=== PATIENT | female | born 1975 | race Caucasian/White ===

== ENCOUNTER 2024-06-26 09:02 | Emergency (ER) | payer SELFPAY ==
[~2024-06-26] VITALS: Ht 157.5 cm; Wt 66.9 kg
[2024-06-26 10:26] VITALS: BP 112/71; TEMP 99.7; O2SAT 98
[2024-06-26] MEDS ORDERED: MUCI600T31 PO (10:55)
[2024-06-26] MEDS ORDERED: DOXY-441 PO (10:55)
[2024-06-26] MEDS ORDERED: OXYM15SP2 (10:55)
== END 2024-06-26 11:00 | disposition home or self-care (01) ==
LOC: M ED 09:02
DX: J01.00 Acute maxillary sinusitis, unspecified (principal); H65.02 Acute serous otitis media, left ear; F17.200 Nicotine dependence, unspecified, uncomplicated; Z79.899 Other long term (current) drug therapy; Z79.2 Long term (current) use of antibiotics